=== PATIENT | female | born 1990 | race Caucasian/White ===

== ENCOUNTER 2022-01-21 11:50 | Day surgery (SDC) | payer MEDICAID ==
[2022-01-18 14:32] LABS: BASOPHILS # (AUTO) 0.1 X10'3 (0-0.2); BASOPHILS % (AUTO) 0.6 % (0-1); EOSINOPHILS # (AUTO) 0.2 X10'3 (0-0.9); EOSINOPHILS % (AUTO) 1.9 % (0-6); LYMPHOCYTES # (AUTO) 3.1 X10'3 (1.1-4.8); LYMPHOCYTES % (AUTO) 37.2 % (21-51); MEAN CORPUSCULAR HEMOGLOBIN 29.4 PG (27.0-31.0); MEAN CORPUSCULAR HGB CONC 34.4 g/dL (33.0-36.5); MEAN CORPUSCULAR VOLUME 85.5 FL (78-98); MEAN PLATELET VOLUME 7.8 FL (7.4-10.4); MONOCYTES # (AUTO) 0.7 X10'3 (0-0.9); MONOCYTES % (AUTO) 8.1 % (2-12); NEUTROPHILS # (AUTO) 4.3 X10'3 (1.8-7.7); NEUTROPHILS % (AUTO) 52.2 % (42-75); PRE OP HEMATOCRIT 39.5 % (35.0-45.0); PRE OP HEMOGLOBIN 13.6 g/dL (12.0-16.0); PRE OP PLATELET COUNT 350 X10'3 (140-440); RED BLOOD COUNT 4.62 X10'6 (4.20-5.60); RED CELL DISTRIBUTION WIDTH 13.2 % (11.5-14.5)
[2022-01-18 14:58] LABS: ALBUMIN 4.1 G/DL (3.4-5.0); ALKALINE PHOSPHATASE 62 IU/L (46-116); BLOOD UREA NITROGEN 11 MG/DL (7-18); BUN/CREATININE RATIO 13.9 (6.6-38.0); CALCIUM 9.1 MG/DL (8.5-10.1); CHLORIDE 105 MMOL/L (99-107); CREATININE 0.79 MG/DL (0.40-0.90); HCG SERUM QL NEGATIVE; PRE OP ALT 25 U/L (30-65); PRE OP ANION GAP 9 (8-16); PRE OP AST 17 U/L (10-37); PRE OP BILIRUB, TOTAL 0.4 MG/DL (0.0-1.0); PRE OP POTASSIUM 3.6 MMOL/L (3.4-5.1); PRE OP SODIUM 141 MMOL/L (135-145); TOTAL CARBON DIOXIDE 26.6 MMOL/L (24-32); TOTAL PROTEIN 8.1 G/DL (6.4-8.2); eGFR 84 ML/MIN
[2022-01-18 15:00] LABS: PRE OP GLUCOSE 58 MG/DL (70-104)
[~2022-01-21] VITALS: Ht 165.1 cm; Wt 108.0 kg
[2022-01-21] VITALS (9 sets, daily range): BP systolic 84–123; BP diastolic 51–82
[~2022-01-21 11:50] MED LIST: NO HOME MEDS; famotidine 20mg tablet PO ONE; ringers solution, lacted 1,000 ML IV SCH
[2022-01-21] MEDS ORDERED: BUPIVAcaine 0.5% inj/PF 30 ML ONE (14:45)
[2022-01-21] MEDS ORDERED: fentaNYL/PF 50MCG/1 ML 2ML syringe IV PRN ×2 (16:05)
[2022-01-21] MEDS ORDERED: labetalol 20mg/4ml (5mg/ml) syringe IV PRN (16:05)
[2022-01-21] MEDS ORDERED: hydrALAZINE 20mg/ml inj. IV PRN (16:05)
[2022-01-21] MEDS ORDERED: ondansetron/PF 4mg/2ml inj IV PRN (16:05)
[2022-01-21] MEDS ORDERED: ringers solution, lacted 1,000 ML IV SCH (16:05)
[2022-01-21] MEDS ORDERED: morphine 2 MG/ML inj. syringe IV PRN (16:05)
[2022-01-21] MEDS ORDERED: morphine 4 MG/ML inj SYRINge IV PRN (16:05)
[2022-01-21] MEDS ORDERED: midazolam 1 mg/ML 2ml injection ONE (16:11)
[2022-01-21] MEDS ORDERED: meperidine/PF 50mg/ml syringe ONE (16:11)
[2022-01-21] MEDS ORDERED: propofol inj 20 ML IV ONE (16:36)
[2022-01-21] MEDS ORDERED: LIDOcaine 2% (20mg/ml) 5ml vial ONE (16:36)
[2022-01-21] MEDS ORDERED: rocuronium 10mg/ml inj IV ONE ×2 (16:38→17:43)
[2022-01-21] MEDS ORDERED: dexamethasone sod phosphate 4mg/ml inj. ONE (16:39)
[2022-01-21] MEDS ORDERED: ondansetron/PF 4mg/2ml inj ONE (16:39)
[2022-01-21] MEDS ORDERED: labetalol 20mg/4ml (5mg/ml) syringe IV ONE (17:16)
[2022-01-21] MEDS ORDERED: FENTANYL CITRATE/PF 50 MCG/1 ML VIAL ONE (17:17)
--- NOTE | 2022-01-21 18:28 | NUR ---
Received from OR via [facility], accompanied by Anesthesiologist DR HURD and report given by Anesthesiologist. PT DROWSY, DENIES PAIN. LEFT ABDOMEN W 2 LAP SITES W/DERMABOND CDI, UMBILICAL W/LAP SITE W/DERMABOND CDI, PIPPA PAD IN PLACE, NO DRAINAGE NOTED. Addendum: 01/21/22 at 1858 by Caridad Little RN Amended: Links added.
[2022-01-21] MEDS ORDERED: oxyCODONE/APAP 10/325mg tablet PO ONE (18:40)
[2022-01-21] MEDS ORDERED: ketorolac trometh. 30mg/ml inj. IV ONE (18:40)
[2022-01-21] MEDS ORDERED: proCHLORperazine 10 MG/2 ml inj IV PRN (18:50)
--- NOTE | 2022-01-21 19:58 | NUR ---
PT UP AND ABLE TO AMBULATE SAFELY, PAIN TOLERABLE, D/C INSTRUCTIONS GIVEN AND GONE OVER W/PT WHO VERBALIZED UNDERSTANDING. PT D/CD TO HOME VIA W/C TO PRIVATE VEHICLE W/O INCIDENT. Addendum: 01/21/22 at 2015 by Caridad Little RN Amended: Links added.
== END 2022-01-21 19:58 | disposition home or self-care (01) ==
LOC: PAS 11:50
PROVIDERS: ATTEND Obstetrics & Gynecology
DX: Z30.2 Encounter for sterilization (principal); E66.9 Obesity, unspecified; Z68.41 Body mass index [BMI] 40.0-44.9, adult; Z87.891 Personal history of nicotine dependence; Z79.899 Other long term (current) drug therapy; Z98.890 Other specified postprocedural states; Z20.822 Contact with and (suspected) exposure to COVID-19; Z80.0 Family history of malignant neoplasm of digestive organs; Z80.49 Family history of malignant neoplasm of other genital organs
CPT/HCPCS: 36415; 58670; 80053; 82948; 84703; 85025; 86885; 86900; 86901; 87635; C9803; J0780; J1100; J1885; J2175; J2250; J2270; J2405; J2704; J3010; J3490; J7030; J7120; S0020; Z7506; Z7508; Z7512; A4618